=== PATIENT | male | born 1980 | race Caucasian/White ===

== ENCOUNTER 2016-08-12 05:19 | Emergency (ER) | payer OTHER ==
[2016-08-12 07:28] LABS: Basophils % (Auto) 0.2 % (0.0-1.8); Eosinophils % (Auto) 0.1 % (0.0-4.3); Hematocrit 43.3 % (35.5-45.6); Hemoglobin 14.4 gm/dl (11.8-15.2); Mean Corpuscular HGB Conc 33 % (32-34); Mean Corpuscular Hemoglobin 30 pg (28-32); Mean Corpuscular Volume 91 fl (84-94); Platelet Count 271 K/mm3 (140-440); Red Blood Count 4.76 M/mm3 (3.65-5.03); Red Cell Distribution Width 13.7 % (13.2-15.2); White Blood Count 14.7 K/mm3 (4.5-11.0)
[2016-08-12 07:31] LABS: Bacteria,Urine 1+ /HPF (Negative); Bilirubin,Urine NEG (Negative); Blood,Urine MOD (Negative); Ketones,Urine NEG (Negative); Leukocyte Esterase,Urine NEG (Negative); Mucus,Urine FEW /HPF; Nitrite,Urine NEG (Negative); Protein,Urine <15 mg/dL mg/dL (Negative); Urobilinogen,Urine < 2.0 mg/dL (<2.0)
[2016-08-12 07:35] LABS: Alanine Aminotransferase 22 units/L (7-56); Albumin 4.5 g/dL (3.9-5); Albumin/Globulin Ratio 1.5 %; Alkaline Phosphatase 98 units/L (35-129); Anion Gap 18 mmol/L; BUN/Creatinine Ratio 13.07; Blood Urea Nitrogen 17 mg/dL (9-20); Calcium 9.3 mg/dL (8.4-10.2); Carbon Dioxide 27 mmol/L (22-30); Glucose 140 mg/dL (75-100); Lipase 32 units/L (13-60); Sodium 140 mmol/L (137-145); Total Protein 7.5 g/dL (6.3-8.2)
--- NOTE | 2016-08-12 08:56 | XRay Report ---
Abdomen 2 views: History: Left lower quadrant abdominal pain. Findings: No free intraperitoneal air. Air-fluid level in moderately distended stomach. Minimal air in small bowel with stool in colon. No bowel distention. Radiopaque density measuring 3 mm in diameter adjacent to the left transverse process of third lumbar vertebral body may represent a calculus. Impression: Air-fluid level in moderately distended stomach. Suspected calculus adjacent to left transverse process of third lumbar vertebral body.
[2016-08-12] MEDS ORDERED: DILAUDID IV ONE (09:46)
[2016-08-12] MEDS ORDERED: TORADOL IV ONE (09:46)
[2016-08-12] MEDS ORDERED: ZOFRAN IV ONE (09:46)
--- NOTE | 2016-08-12 10:28 | Emergency Department Report ---
ED General Adult HPI - General Chief complaint: Abdominal Pain Stated complaint: LEFT SIDE ABD PAIN Time Seen by Provider: 08/12/16 10:27 Source: patient Mode of arrival: Ambulatory Limitations: No Limitations - History of Present Illness Initial comments: Patient complains of the acute onset of left lower quadrant pain this a.m. It is persistent. He states he has no prior history of kidney stone and no known familial predisposition. He does not complain of fever or chills or any dysuria. He is not currently nauseated. He has no other complaints. -: Sudden Location: abdomen, left Radiation: non-radiation Severity scale (0 -10): 10 Quality: aching Consistency: constant Improves with: none Worsens with: none Associated Symptoms: denies other symptoms Treatments Prior to Arrival: none - Related Data Previous Rx's Medication Instructions Recorded Last Taken Type HYDROcodone/APAP 5-325 [Taiban 1 each PO Q6HR PRN #10 tablet 08/12/16 Unknown Rx 5/325] Allergies Allergy/AdvReac Type Severity Reaction Status Date / Time No Known Allergies Allergy Verified 08/12/16 06:06 ED Review of Systems ROS: Stated complaint: LEFT SIDE ABD PAIN Other details as noted in HPI Constitutional: denies: chills, fever Eyes: denies: eye pain, eye discharge, vision change ENT: denies: ear pain, throat pain Respiratory: denies: cough, shortness of breath, wheezing Cardiovascular: denies: chest pain, palpitations Endocrine: no symptoms reported Gastrointestinal: as per HPI, abdominal pain. denies: diarrhea Genitourinary: denies: urgency, dysuria Musculoskeletal: denies: back pain, joint swelling, arthralgia Skin: denies: rash, lesions Neurological: denies: headache, weakness, paresthesias Psychiatric: denies: anxiety, depression Hematological/Lymphatic: denies: easy bleeding, easy bruising ED Past Medical Hx - Past Medical History Previous Medical History?: No - Surgical History Past Surgical History?: No - Social History Smoking Status: Never Smoker Substance Use Type: None - Medications Home Medications: Home Medications Medication Instructions Recorded Confirmed Last Taken Type HYDROcodone/APAP 5-325 [Taiban 1 each PO Q6HR PRN #10 tablet 08/12/16 Unknown Rx 5/325] ED Physical Exam - General Limitations: No Limitations General appearance: alert, in no apparent distress - Head Head exam: Present: atraumatic, normocephalic - Eye Eye exam: Present: normal appearance. Absent: scleral icterus - ENT ENT exam: Present: mucous membranes moist - Neck Neck exam: Present: normal inspection - Respiratory Respiratory exam: Present: normal lung sounds bilaterally. Absent: respiratory distress - Cardiovascular Cardiovascular Exam: Present: regular rate, normal rhythm. Absent: systolic murmur, diastolic murmur, rubs, gallop - GI/Abdominal GI/Abdominal exam: Present: soft, normal bowel sounds. Absent: distended, tenderness, guarding, rebound, rigid - Rectal Rectal exam: Present: deferred - Extremities Exam Extremities exam: Present: normal inspection - Back Exam Back exam: Present: normal inspection - Neurological Exam Neurological exam: Present: alert, oriented X3, CN II-XII intact. Absent: motor sensory deficit - Psychiatric Psychiatric exam: Present: normal affect, normal mood - Skin Skin exam: Present: warm, dry, intact, normal color. Absent: rash ED Course Vital Signs 08/12/16 08/12/16 06:00 08:13 Temperature 98.5 F 98.9 F Pulse Rate 59 L 74 Respiratory 20 18 Rate Blood Pressure 142/96 134/98 [Right] O2 Sat by Pulse 99 97 Oximetry - Reevaluation(s) Reevaluation #1: Reevaluation after CT the patient is completely asymptomatic. He was prior given analgesia. His CT showed hydro-on the left with a 5 mm proximal ureteral stone. I've explained to the patient it is really impossible to be certain that his pain will not recur. However judging by his degree of comfort, I would be surprised if he has passed the culprit stone. He does additionally have nephrolithiasis. He will be referred to urology. 08/12/16 11:22 ED Medical Decision Making - Lab Data Result diagrams: 08/12/16 07:02 08/12/16 07:02 Laboratory Results - last 24 hr 08/12/16 08/12/16 08/12/16 06:00 07:02 07:02 WBC 14.7 H RBC 4.76 Hgb 14.4 Hct 43.3 MCV 91 MCH 30 MCHC 33 RDW 13.7 Plt Count 271 Lymph % (Auto) 6.2 L Weston % (Auto) 3.7 Eos % (Auto) 0.1 Baso % (Auto) 0.2 Lymph # 0.9 L Weston # 0.5 Eos # 0.0 Baso # 0.0 Seg Neutrophils % 89.8 H Seg Neutrophils # 13.2 H Sodium 140 Potassium 4.0 Chloride 99.0 Carbon Dioxide 27 Anion Gap 18 BUN 17 Creatinine 1.3 Estimated GFR > 60 BUN/Creatinine Ratio 13.07 Glucose 140 H Calcium 9.3 Total Bilirubin 0.40 AST 20 ALT 22 Alkaline Phosphatase 98 Total Protein 7.5 Albumin 4.5 Albumin/Globulin Ratio 1.5 Lipase 32 Urine Color Yellow Urine Turbidity Cloudy Urine pH 7.0 Ur Specific Commodore 1.016 Urine Protein <15 mg/dl Urine Glucose (UA) Neg Urine Ketones Neg Urine Blood Mod Urine Nitrite Neg Urine Bilirubin Neg Urine Urobilinogen < 2.0 Ur Leukocyte Esterase Neg Urine WBC (Auto) 6.0 Urine RBC (Auto) 43.0 Urine Bacteria (Auto) 1+ Amorphous Crystals 1+ Urine Mucus Few - Radiology Data Radiology results: report reviewed interpreted by me: CT report described above Critical care attestation.: If time is entered above; I have spent that time in minutes in the direct care of this critically ill patient, excluding procedure time. ED Disposition Clinical Impression: Renal colic on left side, Nephrolithiasis Disposition: DISCHARGED TO HOME OR SELFCARE Is pt being admited?: No Does the pt Need Aspirin: No Condition: Stable Instructions: Kidney Stones (ED) Additional Instructions: Maintain adequate hydration. Rx as needed for pain. Follow-up with urology. Return as needed any recurrent symptoms. Prescriptions: HYDROcodone/APAP 5-325 [Taiban 5/325] 1 each PO Q6HR PRN #10 tablet PRN Reason: Pain Referrals: [facility]IMARY [facility] [Primary Care Provider] - 3-5 Days [facility] [Provider Group] - 3-5 Days [facility] [Provider Group] - 3-5 Days Time of Disposition: 11:25
--- NOTE | 2016-08-12 11:06 | Cat Scan Report ---
CT scan of abdomen and pelvis without IV contrast: Findings: The right upper limit of normal in size. No intrahepatic or extrahepatic duct dilatation. No mass. Normal pancreas spleen and gallbladder. Normal adrenals. There is a 5 mm calculus identified at the proximal left ureter with hydronephrosis. Nonobstructing 3 mm and 2 mm calculus identified in the left kidney. No calculi the right kidney. Normal bladder. Normal prostate. No free intraperitoneal fluid or. No evidence of adenopathy. Grossly normal bowel gas pattern with stool in colon. Normal terminal ileum and appendix. No evidence of diverticulitis. Impression: 5 mm calculus proximal left ureter with hydronephrosis. Nonobstructing 2 calculi the left kidney.
[2016-08-12 11:35] VITALS: BP 132/80
== END 2016-08-12 11:37 | disposition home or self-care (01) ==
LOC: ED 05:19
DX: N23 Unspecified renal colic (principal); N20.0 Calculus of kidney
CPT/HCPCS: 36415; 74020; 74176; 80053; 81001; 83690; 85025; 96374; 96375; 99284; J1170; J1885; J2405